=== PATIENT | female | born 1965 | race Caucasian/White ===

== ENCOUNTER 2021-08-31 10:10 | Emergency (ER) | payer OTHER, SELFPAY ==
[2021-08-31 10:22] VITALS: BP 122/68; PULSE 99; RESP 18; TEMP 36.6; O2SAT 100
--- NOTE | 2021-08-31 10:36 | ED.SKABFB ---
HPI - Skin/Abscess/Foreign Bdy General Chief complaint: Skin/Abscess/Foreign Body Stated complaint: Rash Time Seen by Provider: 08/31/21 10:29 Source: patient and RN notes reviewed Mode of arrival: ambulatory Limitations: no limitations History of Present Illness HPI narrative: Patient presents today complaining of a painful rash to her left buttock extending down the posterior left upper leg to the knee. Rash appeared last night, but the pain was present for the day preceding. She applied some Desitin to the area so it was rubbing her pajamas last night, which did provide some relief. She currently rates her pain 6?7/10. Denies history of shingles. She has not had the shingles vaccine. MD complaint: rash Related Data Home Medications Medication Instructions Recorded Confirmed bupropion HCl [Wellbutrin XL] 150 mg PO QAM 08/31/21 08/31/21 buspirone 10 mg PO BID 08/31/21 08/31/21 Allergies Allergy/AdvReac Type Severity Reaction Status Date / Time No Known Allergies Allergy Verified 08/31/21 10:21 Review of Systems Review of Systems: CONSTITUTIONAL: Denies body aches, fever, chills, or sweats. EYES: Denies visual changes, redness, or discharge. ENT: Denies rhinorrhea, congestion, sore throat, or otalgia. CARDIOVASCULAR: Denies chest pain, palpitations, or edema. RESPIRATORY: Denies cough or dyspnea. GASTROINTESTINAL: Denies abdominal pain, nausea, vomiting, or diarrhea. GENITOURINARY: Denies dysuria or hematuria. SKIN: Denies itching, or wounds.+ Rash MUSCULOSKELETAL: Denies back pain, joint pain, or myalgia. NEUROLOGIC: Denies headache, numbness, tingling, or weakness. PSYCH: Denies depression or anxiety. [facility] Past Medical History Medical History (Updated 08/31/21 @ 10:42 by Sharon Uriostegui, [employer], ) Anxiety Depression Comments At time of signature, I have reviewed and agree with nursing past medical, surgical, social and family history unless otherwise noted. Please see nursing chart for further information. There is no relevant family history pertinent to the presenting complaint Exam Narrative: GENERAL: Well-appearing, well-nourished, and in no acute distress. HEAD: Normocephalic, atraumatic. EYES: EOMI. No redness or drainage. Conjunctivae normal. ENT: Mucous membranes pink and moist. NECK: Normal AROM. CHEST: No respiratory distress. EXTREMITIES: Normal range of motion. No edema. SKIN: Warm, dry. Capillary refill normal. Normal skin turgor. Erythematous vesicular rash that starts just above the gluteal cleft extending to the left buttock and down the medial posterior left upper leg to the popliteal fossa in a dermatomal pattern. NEURO: No focal deficits. Alert and oriented x3. Gait steady. PSYCH: Normal affect. No signs of depression or anxiety. Course Course Level of Care: Express Care Visit Vital Signs Vital signs: Vital Signs Temperature 97.8 F 08/31/21 10:22 Pulse Rate 99 08/31/21 10:22 Respiratory Rate 18 08/31/21 10:22 Blood Pressure 122/68 08/31/21 10:22 Pulse Oximetry 100 08/31/21 10:22 Temperature 97.8 F 08/31/21 10:22 Pulse Rate 99 08/31/21 10:22 Respiratory Rate 18 08/31/21 10:22 Blood Pressure 122/68 08/31/21 10:22 Pulse Oximetry 100 08/31/21 10:22 Reviewed. Pt has been instructed to follow up with her PCP regarding her elevated blood pressure today. MDM - Skin/Abscess/Foreign Bdy Differential Diagnosis Differential diagnosis: Likely abscess of skin or subcutaneous tissue, dermatophytosis, herpes zoster, cellulitis, eczema, impetigo and contact dermatitis Critical Care Time Critical Care Time Critical Care Time: No Discharge Plan Discharge Clinical Impression: Shingles Qualifiers: Herpes zoster complications: without complications Qualified Code(s): B02.9 - Zoster without complications Patient Disposition: Home, Self-Care Condition: Stable Instructions: Shingles (ED) Additional Instructions: Please take
== END 2021-08-31 10:44 | disposition home or self-care (01) ==
PROVIDERS: Emergency Provider Nurse Practitioner; PCP Family Medicine Adult Medicine
DX: B02.9 Zoster without complications (principal); F41.9 Anxiety disorder, unspecified; F32.A Depression, unspecified
CPT/HCPCS: 99203; G0463